=== PATIENT | female | born 1975 | race Two or more races ===

== ENCOUNTER 2016-04-24 01:53 | Emergency (ER) | payer MEDICAID ==
[2016-04-24 02:41] LABS: URINE BILIRUBIN NEGATIVE (NEGATIVE); URINE BLOOD TRACE (NEGATIVE); URINE COLOR YELLOW; URINE GLUCOSE (UA) NEGATIVE (NEGATIVE); URINE KETONE NEGATIVE (NEGATIVE); URINE PH 6.5; URINE PROTEIN 30 mg/dL (NEGATIVE); URINE RBC 0-2 /hpf (0-5); URINE UROBILINOGEN 0.2 E.U./dL (0.2 - 1.0)
[2016-04-24 02:42] LABS: URINE BACTERIA MODERATE /hpf (NONE SEEN); URINE EPITHELIAL CELLS MODERATE /lpf (FEW); URINE WBC >100 /hpf (0-5)
--- NOTE | 2016-04-24 03:05 | ED Physician Chart ---
Chief Complaint/HPI - Patient Information Date Seen:: 04/24/16 Time Seen:: 02:40 Chief Complaint:: PAINFUL URINATION History of Present Illness:: THIS IS A 40 YO FEMALE WITH PAINFUL URINATION AND Allergies:: Allergies Allergy/AdvReac Type Severity Reaction Status Date / Time No Known Allergies Allergy Verified 04/24/16 02:16 Vitals:: Vital Signs - 8 hr 04/24/16 02:18 Temp 97.8 F HR 70 RR 18 BP 143/84 O2 Sat % 100 Historian:: Patient Review:: Nurse's Note Reviewed Review of Systems - Review of Systems General/Constitutional: Fever, No fever, No chills, No weight loss, No weakness , No diaphoresis, No edema, No loss of appetite Skin: No skin lesions, No rash, No bruising Head: No headache, No light-headedness Eyes: No loss of vision, No pain, No diplopia ENT: No earache, No nasal drainage, No sore throat, No tinnitus Neck: No neck pain, No swelling, No thyromegaly, No stiffness, No mass noted Cardio Vascular: No chest pain, No palpitations, No PND, No orthopnea, No edema Pulmonary: No SOB, No cough, No sputum, No wheezing GI: Nausea, No vomiting, No diarrhea, No pain, No melena, No hematochezia, No constipation, No hematemesis G/U: Dysuria, Frequency, No hematuria Musculoskeletal: No bone or joint pain, No back pain, No muscle pain Endocrine: No polyuria, No polydipsia Psychiatric: No prior psych history, No depression, No anxiety, No suicidal ideation Hematopoietic: No bruising, No lymphadenopathy Allergic/Immuno: No urticaria, No angioedema Neurological: No syncope, No focal symptoms, No weakness, No paresthesia, No headache, No seizure, No dizziness, No confusion, No vertigo Past Medical History - Past Medical History Obtainable: Yes Past Medical History: No significant medical hx Family History: None Social History: Non Smoker, No Alcohol, No Drug Use Surgical History: Psychiatricy History: None Medication: Reviewed Family Medical History - Family Member Mother History Unknown: Yes Ethnicity: Living Status: Still Living Hx Family Cancer: No Hx Family Hypertension: No Hx Family Diabetes: Yes Physical Exam - Physical Examination General/Constitutional: Awake, Well-developed, well-nourished, Alert, No distress, GCS 15, Non-toxic appearing, Ambulatory Head: Atraumatic Eyes: Lids, conjuctiva normal, PERRL, EOMI Skin: Nl inspection, No rash, No skin lesions, No ecchymosis, Well hydrated, No lymphadenopathy ENMT: External ears, nose nl, Nasal exam nl, Lips, teeth, gums nl Neck: Nontender, Full ROM w/o pain, No JVD, No nuchal rigidity, No bruit, No mass, No stridor Respiratory: Nl effort/Exclusion, Clear to Auscultation, No Wheeze/Rhonchi/Rales Cardio Vascular: RRR, No murmur, gallop, rubs, NL S1 S2 GI: No organomegaly, No hernia, Normal BS's, Nondistended, No mass/bruits, No McBurney tenderness Other GI comments:: THERE IS TENDERNESS AND GUARDING IN THE BLADDER AREA THAT RADIATE TO THE LEFT CVA AREA. : No CVA tenderness Extremities: No tenderness or effusion, Full ROM, normal strength in all extremities, No edema, Normal digits & nails Neuro/Psych: Alert/oriented, DTR's symmetric, Normal sensory exam, Normal motor strength, Judgement/insight normal, Mood normal, Normal gait, No focal deficits Misc: normal gait, Normal back, No paraspinal tenderness Labs/Radiology/EKG Results - Lab Results Results: Laboratory Tests 04/24/16 04/24/16 02:05 02:05 Urine Source CLEAN C Urine Color YELLOW Urine Clarity HAZY Urine pH 6.5 Ur Specific [place] 1.025 Urine Protein 30 H Urine Glucose (UA) NEGATIVE Urine Ketones NEGATIVE Urine Blood TRACE Urine Nitrate NEGATIVE Urine Bilirubin NEGATIVE Urine Urobilinogen 0.2 Ur Leukocyte Esterase MODERATE H Urine RBC 0-2 Urine WBC >100 H Ur Epithelial Cells MODERATE Urine Bacteria MODERATE Urine Test NEGATIVE ED Septic Shock - . Is Septic Shock (SBP<90, OR Lactate>4 mmol\L) present?: No - <6hrs of presentation: Vital Signs: Vital Signs - 8 hr 04/24/16 02:18 Temp 97.8 F HR 70 RR 18 BP 143/84 O2 Sat % 100 Reassessment (Disposition) - Reassessment Reassessment Condition:: Improved - Diagnosis Diagnosis:: URINARY TRACT INFECTION - Aftercare/Follow up Instructions Aftercare/Follow-Up Instructions:: Counseled pt regarding lab results/diagnosis & need follow up, Refer to Discharge Instructions, Counseled pt & family regarding lab results/diagnosis & need follow up Medication Prescribed:: CIPRO - Patient Disposition Discharge/Transfer:: Home Condition at Disposition:: Improved ED Discharge Plan - Patient Disposition Admit/Discharge/Transfer: PT DISCHARGED HOME Condition at Disposition: Improved Instructions: Urinary Tract Infection, [id number], Urinary Tract Infection
== END 2016-04-24 03:25 | disposition home or self-care (01) ==
LOC: ER 01:53
DX: N39.0 Urinary tract infection, site not specified (principal)
CPT/HCPCS: 99284; 96372; 87086; 81001; 81025; J0696; Z7502

== ENCOUNTER 2016-11-20 01:47 | Emergency (ER) | payer MEDICAID ==
[2016-11-20 02:21] LABS: URINE BILIRUBIN NEGATIVE (NEGATIVE); URINE BLOOD MODERATE (NEGATIVE); URINE GLUCOSE (UA) NEGATIVE (NEGATIVE); URINE KETONE NEGATIVE (NEGATIVE); URINE PROTEIN 30 mg/dL (NEGATIVE); URINE UROBILINOGEN 0.2 E.U./dL (0.2 - 1.0)
[2016-11-20 02:28] LABS: % BASOPHILS 0.9 % (0.0-2.0); % EOSINOPHILS 5.4 % (0.0-5.0); % NEUTROPHILS 60.7 % (40.0-80.0); ANION GAP 9.7 (7.0-16.0); BUN - UREA NITROGEN 16 mg/dL (7-25); CALCIUM SERUM 9.9 mg/dL (8.6-10.3); CARBON DIOXIDE 25.9 mEq/L (21.0-31.0); CHLORIDE 100 mEq/L (98-107); CREATININE - SERUM 0.8 mg/dL (0.6-1.2); GLUCOSE 212 mg/dL (70-105); HEMATOCRIT 36.1 % (35.0-45.0); HEMOGLOBIN 12.4 gm/dL (11.7-15.5); MEAN CELL VOLUME 83.1 fl (81-100); MEAN CORPUSCULAR HEMOGLOBIN 28.6 pg (27.0-31.0); MEAN CORPUSCULAR HGB CONC 34.4 pg (28.0-36.0); MEAN PLATELET VOLUME 9.8 fl; NEUTROPHILE ABSOLUTE 5.7 Th/cmm (1.8-8.0); PLATELET COUNT 185 Th/cmm (150-400); POTASSIUM SERUM 3.6 mEq/L (3.5-5.1); RED BLOOD COUNT 4.34 Mil/cmm (3.80-5.10); RED CELL DISTRIBUTION WIDTH 13.2 % (11.5-20.0); SODIUM SERUM 132 mEq/L (136-145); WHITE BLOOD COUNT 9.5 Th/cmm (4.8-10.8)
[2016-11-20 02:34] LABS: URINE COLOR YELLOW
[2016-11-20 02:38] LABS: URINE BACTERIA NONE SEEN /hpf (NONE SEEN); URINE EPITHELIAL CELLS FEW /lpf (FEW); URINE WBC 50-100 /hpf (0-5)
--- NOTE | 2016-11-20 03:02 | ED Physician Chart ---
Chief Complaint/HPI - Patient Information Date Seen:: 11/20/16 Time Seen:: 02:07 Chief Complaint:: abdominal pain History of Present Illness:: THIS IS A 41 YO FEMALE WITH RECURRENT ABDOMINAL PAIN, PAINFUL URINATION AND NAUSEA BUT NO VOMITING. SHE DENIES . SHE HAS HISTORY OF URINARY TRACT INFECTIONS WELL RENAL STONES. SHE HAS ALSO HAD ELEVATED GLUCOSE AND LIVER ENZYEMES IN THE PAST. Allergies:: Allergies Allergy/AdvReac Type Severity Reaction Status Date / Time No Known Allergies Allergy Verified 04/24/16 02:16 Vitals:: Vital Signs - 8 hr 11/20/16 11/20/16 01:57 02:22 Temp 98.4 F HR 77 84 RR 18 18 BP 163/92 166/98 O2 Sat % 98 97 Historian:: Patient, Medical Records Review:: Nurse's Note Reviewed, Old Chart Reviewed Review of Systems - Review of Systems General/Constitutional: No fever, No chills, No weight loss, No weakness, No diaphoresis, No edema, No loss of appetite Skin: No skin lesions, No rash, No bruising Head: No headache, No light-headedness Eyes: No loss of vision, No pain, No diplopia ENT: No earache, No nasal drainage, No sore throat, No tinnitus Neck: No neck pain, No swelling, No thyromegaly, No stiffness, No mass noted Cardio Vascular: No chest pain, No palpitations, No PND, No orthopnea, No edema Pulmonary: No SOB, No cough, No sputum, No wheezing GI: No nausea, No vomiting, No diarrhea, No pain, No melena, No hematochezia, No constipation, No hematemesis G/U: Dysuria, No frequency, No hematuria Musculoskeletal: No bone or joint pain, No back pain, No muscle pain Endocrine: No polyuria, No polydipsia Psychiatric: No prior psych history, No depression, No anxiety, No suicidal ideation Hematopoietic: No bruising, No lymphadenopathy Allergic/Immuno: No urticaria, No angioedema Neurological: No syncope, No focal symptoms, No weakness, No paresthesia, No headache, No seizure, No dizziness, No confusion, No vertigo Past Medical History - Past Medical History Obtainable: Yes Past Medical History: HTN, DM, Renal stone Family History: Diabetes Melitus Social History: Non Smoker, No Alcohol, No Drug Use, Surgical History: (TWO C-SECTIONS) Psychiatricy History: None Medication: Reviewed Family Medical History - Family Member Mother History Unknown: Yes Ethnicity: Living Status: Still Living Hx Family Cancer: No Hx Family Hypertension: Yes Hx Family Diabetes: Yes Physical Exam - Physical Examination General/Constitutional: Awake, Well-developed, well-nourished, Alert, No distress, GCS 15, Non-toxic appearing, Ambulatory Head: Atraumatic Eyes: Lids, conjuctiva normal, PERRL, EOMI Skin: Nl inspection, No rash, No skin lesions, No ecchymosis, Well hydrated, No lymphadenopathy ENMT: External ears, nose nl, Nasal exam nl, Lips, teeth, gums nl Neck: Nontender, Full ROM w/o pain, No JVD, No nuchal rigidity, No bruit, No mass, No stridor Respiratory: Nl effort/Exclusion, Clear to Auscultation, No Wheeze/Rhonchi/Rales Cardio Vascular: RRR, No murmur, gallop, rubs, NL S1 S2 GI: No organomegaly, No hernia, Normal BS's, No mass/bruits, No McBurney tenderness Other GI comments:: THE ABDOMEN IS SOFT WITH TENDERNESS IN THE EPIGASTRIC,RIGHT UPPER QUADRANT AND LEFT FLANK AREA. : No CVA tenderness Extremities: No tenderness or effusion, Full ROM, normal strength in all extremities, No edema, Normal digits & nails Neuro/Psych: Alert/oriented, DTR's symmetric, Normal sensory exam, Normal motor strength, Judgement/insight normal, Mood normal, Normal gait, No focal deficits Misc: normal gait, Normal back, No paraspinal tenderness Labs/Radiology/EKG Results - Lab Results Results: Laboratory Tests 11/20/16 11/20/16 11/20/16 01:50 01:50 02:03 WBC 9.5 RBC 4.34 Hgb 12.4 Hct 36.1 MCV 83.1 MCH 28.6 MCHC Differential 34.4 RDW 13.2 Plt Count 185 MPV 9.8 Neutrophils % 60.7 Lymphocytes % 27.0 Monocytes % 6.0 Eosinophils % 5.4 H Basophils % 0.9 Sodium Potassium Chloride Carbon Dioxide Anion Gap BUN Creatinine Est GFR ( Amer) Est GFR (Non-Af Amer) BUN/Creatinine Ratio Glucose Calcium Urine Source CLEAN C Urine Color YELLOW Urine Clarity CLOUDY H Urine pH 6.0 Ur Specific [place] 1.025 Urine Protein 30 H Urine Glucose (UA) NEGATIVE Urine Ketones NEGATIVE Urine Blood MODERATE H Urine Nitrate NEGATIVE Urine Bilirubin NEGATIVE Urine Urobilinogen 0.2 Ur Leukocyte Esterase MODERATE H Urine RBC 5-10 H Urine WBC 50-100 H Ur Epithelial Cells FEW Urine Bacteria NONE SEEN Urine Test NEGATIVE 11/20/16 02:03 WBC RBC Hgb Hct MCV MCH MCHC Differential RDW Plt Count MPV Neutrophils % Lymphocytes % Monocytes % Eosinophils % Basophils % Sodium 132 L Potassium 3.6 Chloride 100 Carbon Dioxide 25.9 Anion Gap 9.7 BUN 16 Creatinine 0.8 Est GFR ( Amer) > 60.0 Est GFR (Non-Af Amer) > 60.0 BUN/Creatinine Ratio 20.0 Glucose 212 H Calcium 9.9 Urine Source Urine Color Urine Clarity Urine pH Ur Specific [place] Urine Protein Urine Glucose (UA) Urine Ketones Urine Blood Urine Nitrate Urine Bilirubin Urine Urobilinogen Ur Leukocyte Esterase Urine RBC Urine WBC Ur Epithelial Cells Urine Bacteria Urine Test Abnormal Lab Results 11/20/16 11/20/16 11/20/16 01:50 01:50 02:03 WBC 9.5 RBC 4.34 Hgb 12.4 Hct 36.1 MCV 83.1 MCH 28.6 MCHC Differential 34.4 RDW 13.2 Plt Count 185 MPV 9.8 Neutrophils % 60.7 Lymphocytes % 27.0 Monocytes % 6.0 Eosinophils % 5.4 H Basophils % 0.9 Sodium Potassium Chloride Carbon Dioxide Anion Gap BUN Creatinine Est GFR ( Amer) Est GFR (Non-Af Amer) BUN/Creatinine Ratio Glucose Calcium Urine Source CLEAN C Urine Color YELLOW Urine Clarity CLOUDY H Urine pH 6.0 Ur Specific [place] 1.025 Urine Protein 30 H Urine Glucose (UA) NEGATIVE Urine Ketones NEGATIVE Urine Blood MODERATE H Urine Nitrate NEGATIVE Urine Bilirubin NEGATIVE Urine Urobilinogen 0.2 Ur Leukocyte Esterase MODERATE H Urine RBC 5-10 H Urine WBC 50-100 H Ur Epithelial Cells FEW Urine Bacteria NONE SEEN Urine Test NEGATIVE 11/20/16 02:03 WBC RBC Hgb Hct MCV MCH MCHC Differential RDW Plt Count MPV Neutrophils % Lymphocytes % Monocytes % Eosinophils % Basophils % Sodium 132 L Potassium 3.6 Chloride 100 Carbon Dioxide 25.9 Anion Gap 9.7 BUN 16 Creatinine 0.8 Est GFR ( Amer) > 60.0 Est GFR (Non-Af Amer) > 60.0 BUN/Creatinine Ratio 20.0 Glucose 212 H Calcium 9.9 Urine Source Urine Color Urine Clarity Urine pH Ur Specific [place] Urine Protein Urine Glucose (UA) Urine Ketones Urine Blood Urine Nitrate Urine Bilirubin Urine Urobilinogen Ur Leukocyte Esterase Urine RBC Urine WBC Ur Epithelial Cells Urine Bacteria Urine Test Assessment - Assessment General Assessment: URINARY TRACT INFECTION DIABETES MELLITUS BECAUSE THE A1C IS ELEVATED ED Septic Shock - . Is Septic Shock (SBP<90, OR Lactate>4 mmol\L) present?: No - <6hrs of presentation: Vital Signs: Vital Signs - 8 hr 11/20/16 11/20/16 01:57 02:22 Temp 98.4 F HR 77 84 RR 18 18 BP 163/92 166/98 O2 Sat % 98 97 Reassessment (Disposition) - Reassessment Reassessment Condition:: Improved - Diagnosis Diagnosis:: URINARY TRACK INFECTION - Aftercare/Follow up Instructions Aftercare/Follow-Up Instructions:: Counseled pt regarding lab results/diagnosis & need follow up, Refer to Discharge Instructions, Counseled pt & family regarding lab results/diagnosis & need follow up Medication Prescribed:: SHE SHOULD HAVE HER PMD FOR TREATMENT OF HER DIABETES MELLITUS AND HER HYPERTENSION. - Patient Disposition Discharge/Transfer:: Home Condition at Disposition:: Improved ED Discharge Plan - Patient Disposition Admit/Discharge/Transfer: PT DISCHARGED HOME Condition at Disposition: Improved
[2016-11-20 03:23] LABS: ALB/GLOB RATIO 1.5 (1.0-1.8); ALKALINE PHOSPHATASE 100 U/L (34-104); BILIRUBIN,TOTAL 0.4 mg/dL (0.3-1.0); BUN - UREA NITROGEN 16 mg/dL (7-25); CREATININE - SERUM 0.8 mg/dL (0.6-1.2); POTASSIUM SERUM 3.6 mEq/L (3.5-5.1); SGOT 37 U/L (13-39); SGPT/ALT 66 U/L (7-52); SODIUM SERUM 132 mEq/L (136-145)
[2016-11-20 03:24] LABS: ANION GAP 9.7 (7.0-16.0); CARBON DIOXIDE 25.9 mEq/L (21.0-31.0); CHLORIDE 100 mEq/L (98-107); GLUCOSE 212 mg/dL (70-105)
== END 2016-11-20 03:45 | disposition home or self-care (01) ==
LOC: ER 01:47
DX: N39.0 Urinary tract infection, site not specified (principal); I10 Essential (primary) hypertension; E11.9 Type 2 diabetes mellitus without complications
CPT/HCPCS: 99284; 96372 ×2; 36415; 85025; 87086; 81001; 83036; 81025; 80053; 80048; J1885; J0696; Z7502

== ENCOUNTER 2018-10-14 15:51 | Emergency (ER) | payer MEDICAID ==
--- NOTE | 2018-10-14 16:07 | ED Physician Chart ---
ED Chief Complaint/HPI - Patient Information Date Seen:: 10/14/18 Time Seen:: 16:02 Chief Complaint:: left flank pain History of Present Illness:: this is a 43 yo female with left flank pain and painful urination that started last night. she has a history of renal stones and urinary tract infections in the past. she denies chest pain, head pain and abdominal pain. she thinks that she had fever last night and vomiting some yesterday. Allergies:: Allergies Allergy/AdvReac Type Severity Reaction Status Date / Time No Known Allergies Allergy Verified 06/17/18 00:47 Historian:: Patient Review:: Nurse's Note Reviewed, Old Chart Reviewed ED Review of Systems - Review of Systems General/Constitutional: Fever, No chills, No weight loss, No weakness, No diaphoresis, No edema, No loss of appetite Skin: No skin lesions, No rash, No bruising Head: No headache, No light-headedness Eyes: No loss of vision, No pain, No diplopia ENT: No earache, No nasal drainage, No sore throat, No tinnitus Neck: No neck pain, No swelling, No thyromegaly, No stiffness, No mass noted Cardio Vascular: No chest pain, No palpitations, No PND, No orthopnea, No edema Pulmonary: No SOB, No cough, No sputum, No wheezing GI: Nausea, Vomiting, No diarrhea, No pain, No melena, No hematochezia, No constipation, No hematemesis G/U: Dysuria, No frequency, No hematuria, Other (left flank pain) Musculoskeletal: No bone or joint pain, No back pain, No muscle pain Endocrine: No polyuria, No polydipsia Psychiatric: No prior psych history, No depression, No anxiety, No suicidal ideation Hematopoietic: No bruising, No lymphadenopathy Allergic/Immuno: No urticaria, No angioedema Neurological: No syncope, No focal symptoms, No weakness, No paresthesia, No headache, No seizure, No dizziness, No confusion, No vertigo ED Past Medical History - Past Medical History Obtainable: Yes Past Medical History: Renal stone Family History: None Social History: Non Smoker, No Alcohol, No Drug Use, Employed Surgical History: None, (two c-sections) Psychiatricy History: None Medication: Reviewed Family Medical History - Family Member Mother History Unknown: Yes Ethnicity: Living Status: Still Living Hx Family Cancer: No Hx Family Hypertension: Yes Hx Family Diabetes: Yes ED Physical Exam - Physical Examination General/Constitutional: Awake, Well-developed, well-nourished, Alert, No distress, GCS 15, Non-toxic appearing, Ambulatory Head: Atraumatic Eyes: Lids, conjuctiva normal, PERRL, EOMI Skin: Nl inspection, No rash, No skin lesions, No ecchymosis, Well hydrated, No lymphadenopathy ENMT: External ears, nose nl, Nasal exam nl, Lips, teeth, gums nl Neck: Nontender, Full ROM w/o pain, No JVD, No nuchal rigidity, No bruit, No mass, No stridor Respiratory: Nl effort/Exclusion, Clear to Auscultation, No Wheeze/Rhonchi/Rales Cardio Vascular: RRR, No murmur, gallop, rubs, NL S1 S2 GI: No tenderness/rebounding/guarding, No organomegaly, No hernia, Normal BS's, Nondistended, No mass/bruits, No McBurney tenderness : No CVA tenderness (left cva tenderness and bladder area tenderness) Extremities: No tenderness or effusion, Full ROM, normal strength in all extremities, No edema, Normal digits & nails Neuro/Psych: Alert/oriented, DTR's symmetric, Normal sensory exam, Normal motor strength, Judgement/insight normal, Mood normal, Normal gait, No focal deficits Misc: Normal back, No paraspinal tenderness ED Assessment - Assessment General Assessment: renal stone and uti ED Septic Shock - . Is Septic Shock (SBP<90, OR Lactate>4 mmol\L) present?: No ED Reassessment (Disposition) - Reassessment Reassessment Condition:: Improved - Diagnosis Diagnosis:: renal stone urinary tract infection - Aftercare/Follow up Instructions Aftercare/Follow-Up Instructions:: Counseled pt regarding lab results/diagnosis & need follow up, Refer to Discharge Instructions, Counseled pt & family regarding lab results/diagnosis & need follow up Notes:: to follow up with her pmd on october 16Tuesday. Medication Prescribed:: [id number] - Patient Disposition Discharge/Transfer:: Home Condition at Disposition:: Improved
[2018-10-14 16:14] LABS: URINE SOURCE CLEAN C
[2018-10-14 16:24] LABS: URINE BILIRUBIN NEGATIVE (NEGATIVE); URINE BLOOD SMALL (NEGATIVE); URINE GLUCOSE (UA) NEGATIVE (NEGATIVE); URINE KETONE NEGATIVE (NEGATIVE); URINE LEUKOCYTE ESTERASE MODERATE (NEGATIVE); URINE MICROSCOPIC INDICATED? YES; URINE NITRATE NEGATIVE (NEGATIVE); URINE PROTEIN TRACE mg/dL (NEGATIVE); URINE UROBILINOGEN 0.2 E.U./dL (0.2 - 1.0)
[2018-10-14 16:25] LABS: % BASOPHILS 1.1 % (0.0-2.0); % LYMPHOCYTES 28.8 % (20.0-50.0); % MONOCYTES 5.8 % (2.0-10.0); % NEUTROPHILS 57.3 % (40.0-80.0); BASOPHILE ABSOLUTE 0.1 Th/cumm (0-0.2); EOSINOPHILE ABSOLUTE 0.5 Th/cmm (0.1-0.4); HEMOGLOBIN 12.6 gm/dL (12-16); LYMPHOCYTE ABSOLUTE 2.1 Th/cmm (1.5-3.0); MEAN CORPUSCULAR HGB CONC 33.3 pg (28.0-36.0); MONOCYTE ABSOLUTE 0.4 Th/cmm (0.3-1.0); NEUTROPHILE ABSOLUTE 4.3 Th/cmm (1.8-8.0); PLATELET COUNT 187 Th/cmm (150-400); RED BLOOD COUNT 4.52 Mil/cmm (3.80-5.10); RED CELL DISTRIBUTION WIDTH 12.4 % (11.5-20.0); WHITE BLOOD COUNT 7.4 Th/cmm (4.8-10.8)
[2018-10-14 16:33] LABS: URINE COLOR YELLOW
[2018-10-14 16:33] LABS: ALB/GLOB RATIO 1.5 (1.0-1.8); ALBUMIN 4.4 gm/dL (3.7-5.3); ALKALINE PHOSPHATASE 73 U/L (34-104); ANION GAP 13.1 (7.0-16.0); BILIRUBIN,TOTAL 0.4 mg/dL (0.3-1.0); BUN - UREA NITROGEN 12 mg/dL (7-25); CALCIUM SERUM 9.3 mg/dL (8.6-10.3); CARBON DIOXIDE 26.7 mEq/L (21.0-31.0); CHLORIDE 102 mEq/L (98-107); GFR AFRICAN-AMERICAN > 60.0 ml/min (>90); GFR NON AFRICAN-AMERICAN > 60.0 ml/min; GLUCOSE 118 mg/dL (70-105); POTASSIUM SERUM 3.8 mEq/L (3.5-5.1); SGOT 12 U/L (13-39); SGPT/ALT 15 U/L (7-52); SODIUM SERUM 138 mEq/L (136-145); TOTAL PROTEIN,SERUM 7.3 gm/dL (6.0-8.3)
[2018-10-14 16:34] LABS: URINE CLARITY CLOUDY (CLEAR); URINE RBC 25-50 /hpf (0-5)
[2018-10-14 16:35] LABS: URINE BACTERIA MANY /hpf (NONE SEEN); URINE EPITHELIAL CELLS FEW /lpf (FEW)
--- NOTE | 2018-10-15 09:43 | Diagnostic Imaging Report ---
Exam: CT examination of the pelvis HISTORY: Left-sided flank pain Total DLP equals 633 CTDI equals 12.1 Multiple contiguous thin section of the abdomen pelvis obtained from lower thorax to pubic symphysis without the administration of intravenous or oral contrast material. The study correlated with the prior exam 07/28/2013. The study demonstrates normal aeration of lung parenchyma the bases The visualized liver and spleen are intact. The pancreas is normal. Adrenal glands are normal. The gallbladder is contracted. There is evidence for change in appearance of the large left-sided sac or an calculus. Small nonobstructing right renal calcifications noted. No free fluid is noted. The bowel gas diffusion is nonspecific. There is no evidence of diverticular disease of diverticulitis In the left lower pelvic area there is evidence for soft tissue density with surrounding fat well-demarcated which might represent dermoid unchanged upper prior examination of 07/28/2013. The uterus is normal. Prominence of endometrial canal please correlate with menstrual cycle Bony structures demonstrate no evidence for lytic or blastic changes. IMPRESSION: Unchanged appearance of a large left renal cyst: Calculus Small nonobstructing right renal calculus. The findings unchanged upper prior examination of 07/28/2013.
== END 2018-10-14 18:03 | disposition home or self-care (01) ==
LOC: ER 15:51
DX: N20.0 Calculus of kidney (principal); N39.0 Urinary tract infection, site not specified; Z98.890 Other specified postprocedural states
CPT/HCPCS: 99284; 96372 ×2; 74176; 84484; 36415; 84443; 85025; 87086; 81001; 81025; 80053; 87040 ×2; J1885; J0696